=== PATIENT | female | born 1985 | race Caucasian/White ===

== ENCOUNTER 2018-11-24 17:59 | Emergency (ER) | payer OTHER ==
[2018-11-24] MEDS ORDERED: IBUPROFEN 600 MG TABLET (FP) PO ONE ×2 (18:24→19:21)
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
[2018-11-24 18:26] VITALS: BP 107/77; PULSE 77; TEMP 98.3; BMI 32.9
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
== END 2018-11-24 22:04 | disposition home or self-care (01) ==
LOC: JERFT 17:59
PROC: 2W3RXYZ Immobilization of Left Lower Leg using Other Device (ICD-10-PCS; principal; 2018-11-24)
DX: M25.462 Effusion, left knee (principal); V43.52XA Car driver injured in collision with other type car in traffic accident, initial encounter; Y92.488 Other paved roadways as the place of occurrence of the external cause; Y93.89 Activity, other specified; Y99.8 Other external cause status
CPT/HCPCS: 73562-TC-LT-FY; 84703; 99281-25